=== PATIENT | male | born 1960 | race Hispanic/Latino ===

== ENCOUNTER 2023-06-13 08:53 | Day surgery (SDC) | payer MEDICARE, BC ==
[2023-06-10 10:17] VITALS: BMI 27.3
== END 2023-06-13 10:58 | disposition home or self-care (01) ==
LOC: CSHSDC 08:53
PROVIDERS: ATTEND Internal Medicine Gastroenterology
PROC: 0DJ08ZZ Inspection of Upper Intestinal Tract, Via Natural or Artificial Opening Endoscopic (ICD-10-PCS; principal; 2023-06-13)
DX: K21.9 Gastro-esophageal reflux disease without esophagitis (principal); I10 Essential (primary) hypertension; E78.5 Hyperlipidemia, unspecified; Z88.0 Allergy status to penicillin; Z79.899 Other long term (current) drug therapy